=== PATIENT | female | born 1980 | race Caucasian/White ===

== ENCOUNTER 2017-09-23 05:22 | Day surgery (SDC) | payer OTHER ==
[~2017-09-23] VITALS: Ht 149.9 cm; Wt 59.0 kg
[2017-09-23] MEDS ORDERED: CEFAZOLIN 1 GM IVPB PREMIX 50 ML IV ONE ×2 (07:00→07:50)
[2017-09-23] MEDS ORDERED: ROCURONIUM BROMIDE 10 MG/ML (ZEMURON) IV ONE (07:50)
[2017-09-23] MEDS ORDERED: DEXAMETHASONE SOD PHOSPHATE 4 MG/ML VIAL IVP ONE (07:50)
[2017-09-23] MEDS ORDERED: MIDAZOLAM HCL 5 MG/5 ML VIAL IVP ONE (07:50)
[2017-09-23] MEDS ORDERED: fentaNYL CITRATE 250 MCG/5 ML AMP IV ONE (07:50)
[2017-09-23] MEDS ORDERED: PROPOFOL 200MG/ 20ML VIAL (DIPRIVAN) IV ONE (07:50)
[2017-09-23] MEDS ORDERED: KETOROLAC TROMETHAMINE 30 MG VIAL IVP ONE ×2 (07:50→12:00)
[2017-09-23] MEDS ORDERED: LR 1,000 ML IV.SOLN IV ONE (07:50)
[2017-09-23] MEDS ORDERED: BUPIVACAINE /PF 0.25% 30 ML VIAL INJ ONE (07:50)
[2017-09-23] MEDS ORDERED: NS IRRIG SOLN 1000 ML IR ONE (07:50)
[2017-09-23] MEDS ORDERED: SEVOFLURANE 15 MIN GAS INH ONE (07:50)
[2017-09-23] MEDS ORDERED: ONDANSETRON HCL 4 MG/2 ML VIAL IVP ONE (07:50)
[2017-09-23] MEDS ORDERED: LR 1,000 ML IV SCH (08:46)
[2017-09-23] MEDS ORDERED: MORPHINE 4 MG/ML INJ. SYRINGE IVP PRN ×3 (09:00)
[2017-09-23] MEDS ORDERED: METOCLOPRAMIDE HCL 10 MG/2 ML VIAL IVP PRN (09:00)
[2017-09-23] MEDS ORDERED: ONDANSETRON HCL 4 MG/2 ML VIAL IVP PRN (09:45)
[2017-09-23] MEDS ORDERED: OXYCODONE/ACETAMINOPHEN 5-325 TABLET PO PRN ×2 (09:45)
[2017-09-23] MEDS ORDERED: HYDROcodone/ACETAMIN 5-325 MG TAB (NORCO/ VICODIN) PO PRN (09:45)
[2017-09-23] MEDS ORDERED: HYDROcodone/ACETAMIN 5-325 MG TAB (NORCO/ VICODIN) ONE (10:36)
[2017-09-23] MEDS ORDERED: ONDANSETRON HCL 4 MG/2 ML VIAL ONE (11:40)
[2017-09-23 12:57] VITALS: BP_SYST 164
== END 2017-09-23 12:30 | disposition home or self-care (01) ==
LOC: SDS 05:22 → SMU 05:23 → SDS 12:30
PROVIDERS: ATTEND Specialist
DX: D25.2 Subserosal leiomyoma of uterus (principal); D25.1 Intramural leiomyoma of uterus; N80.0 Endometriosis of uterus; E66.3 Overweight; M43.9 Deforming dorsopathy, unspecified; M79.5 Residual foreign body in soft tissue
CPT/HCPCS: 58542; 88307; C1727; J0690; J1100; J1885; J2250; J2405; J2704; J3010; J3490; J7120